=== PATIENT | male | born 1970 | race Two or more races ===

== ENCOUNTER 2022-09-08 09:27 | Emergency (ER) | payer SELFPAY ==
[~2022-09-08] VITALS: Ht 162.6 cm; Wt 63.0 kg
[2022-09-08] MEDS ORDERED: AMOX500T3 PO (15:38)
[2022-09-08] MEDS ORDERED: PSEU120T2 PO (15:38)
[2022-09-08] MEDS ORDERED: TETANUS-DIPTH-ACEL PERTUSSIS 0.5ML SYR Tdap IM ONE (15:45)
[2022-09-08 15:52] VITALS: BP 155/85
== END 2022-09-08 15:59 | disposition home or self-care (01) ==
LOC: EDBD 09:27 → ER 09:27
DX: S02.2XXA Fracture of nasal bones, initial encounter for closed fracture (principal); S00.83XA Contusion of other part of head, initial encounter; Y04.2XXA Assault by strike against or bumped into by another person, initial encounter; Y93.89 Activity, other specified; Y92.89 Other specified places as the place of occurrence of the external cause; Y99.8 Other external cause status
CPT/HCPCS: 70450; 70486; 72125; 90471; 90715